=== PATIENT | male | born 1950 | race Caucasian/White ===

== ENCOUNTER → 2020-02-28 07:02 | Outpatient (CLI) | payer MEDICARE, OTHER, SELFPAY ==
[2020-02-28 08:30] LABS: Add Manual Diff / Slide Review NO; Basophils Absolute Auto 100 /uL (0-100); Basophils Percent Auto 1.3 % (0-2); Eosinophils Absolute Auto 200 /uL (0-450); Eosinophils Percent Auto 2.3 % (2-4); Hematocrit 46.9 % (41-53); Hemoglobin 15.7 g/dL (13.5-17.5); Lymphocytes Absolute Auto 2200 /uL (1100-4500); Lymphocytes Percent Auto 30.5 % (25-40); Mean Corpuscular HGB Conc 33.5 % (30-36); Mean Corpuscular Hemoglobin 29.3 PG (26-34); Mean Corpuscular Volume 87.6 fL (80-100); Monocytes Absolute Auto 700 /uL (0-900); Monocytes Percent Auto 10.2 % (3-14); Neutrophils Absolute Auto 4000 /uL (1500-7000); Neutrophils Percent Auto 55.7 % (50-75); Platelet Count 151 X10^3/uL (150-400); Red Blood Cell Count 5.35 X10^6/uL (4.5-5.9); Red Cell Distribution Width 13.5 % (11.6-14.8); White Blood Cell Count 7.2 X10^3/uL (4.5-11.0)
[2020-02-28 09:06] LABS: Alanine Aminotransferase 20 IU/L (<50); Albumin 4.3 g/dL (3.5-5.0); Albumin Globulin Ratio 1.4 (1.0-2.8); Alkaline Phosphatase 47 U/L (38-126); Aspartate Aminotransferase 24 IU/L (17-59); BUN Creatinine Ratio 17.5 (6-22); Bilirubin Total 0.8 mg/dL (0.2-1.3); Blood Urea Nitrogen 18 mg/dL (9-20); Calcium 9.9 mg/dL (8.4-10.2); Carbon Dioxide 29 mmol/L (22-32); Chloride 104 mmol/L (98-107); Cholesterol 159 mg/dL (140-199); Estimated Glomerular Filt Rate > 60.0 mL/min (>60); Glucose 121 mg/dL (80-110); HDL Cholesterol 41 mg/dL (40-60); HEMOLYSIS < 15 (0-50); LDL Cholesterol Calculated 97 mg/dL (<100); Potassium 3.9 mmol/L (3.4-5.1); Sodium 139 mmol/L (137-145); Total Protein 7.3 g/dL (6.3-8.2); Triglycerides 105 mg/dL (35-150)
== END ==
PROVIDERS: Referring Provider Physician Assistant; Visit Provider Physician Assistant
DX: I48.91 Unspecified atrial fibrillation (principal); E78.5 Hyperlipidemia, unspecified; I10 Essential (primary) hypertension
CPT/HCPCS: 36415; 80053; 80061; 85025

== ENCOUNTER → 2020-07-19 07:55 | Outpatient (CLI) | payer MEDICARE, OTHER, SELFPAY ==
--- NOTE | 2020-07-19 | DI.ECHO.S_ITS ---
[facility]---------+ [facility] +---------+ : : [address] : [address] [place] : : : : [id number] : : : : Phone: [phone]---------+ Echocardiogram Report + + :Name: TANESHA ADAME Study Date: 07/19/2020 Height: 74 in : :[facility] Weight: 232 lb : : Gender: Male BSA: 2.3 m2 : :: 1950 Age: 69 yrs BP: 140/91 mmHg: :Reason For Study: ATRIAL FIBRILLATION : :Ordering Physician: STEPH, : :KELSIE Performed By: Belkis Morse : :Referring: KELSIE STACY : + + Interpretation Summary 1) Normal left ventricular size and thickness with low normal systolic function (EF 50-55%). 2) Normal right ventricular size and function. 3) The left atrium is moderately dilated. 3) Mild aortic stenosis present (valve area 1.6cm2, mean gradient 8.4mmHg, severity ratio 0.54). 4) No prior Echo available for comparison. Procedure: A two-dimensional transthoracic echocardiogram with color flow and Doppler was performed. The study quality was technically adequate. There is no prior echocardiogram noted for this patient. The patient was in atrial fibrillation with heart rates between 64-82 bpm during the exam. Left Ventricle: The left ventricle is normal in size and wall thickness. The ejection fraction is estimated to be 50-55%. Left ventricular systolic function is low normal. There are no focal wall motion abnormalities. Diastolic function could not be accurately assessed due to atrial fibrillation. Right Ventricle: The right ventricle is normal in size and function. Atria: The left atrium is moderately dilated. Right atrial size is normal. There is no Doppler evidence for an interatrial shunt. Mitral Valve: The mitral valve is normal in structure and function. There is mild mitral regurgitation. Aortic Valve: There is mild aortic valve sclerosis. The aortic valve is trileaflet. The aortic valve is mildly calcified. There is mild aortic stenosis. There is trace aortic regurgitation. Tricuspid Valve: The tricuspid valve is normal in structure and function. The right ventricular systolic pressure is estimated to be at least 30 mmHg based on an estimated right atrial pressure of 8 mm Hg. There is mild tricuspid regurgitation. Pulmonic Valve: The pulmonic valve leaflets are thin and pliable; valve motion is normal. There is no pulmonic valvular regurgitation. Great Vessels: The aortic root is normal size. The dimensions of the ascending aorta are normal. The IVC is of normal diameter and collapses less than 50% with a sniff. This suggests a right atrial pressure of 8 mm Hg. Pericardium/ Pleura There is no pericardial effusion. There is no pleural effusion. MMode/2D Measurements & Calculations LVIDd: 4.5 cm LVOT diam: 2.0 cm LVIDs: 2.8 cm Ao root diam: 2.9 cm FS: 38.5 % asc Aorta Diam: 3.1 cm EPSS: 0.95 cm Ao Arch Diam (Prox Trans): 3.1 cm IVSd: 0.87 cm LVPWd: 0.92 cm LV mejia. diameter/BSA (cm/m^2): 1.9 LV sys. diameter/BSA (cm/m^2): 1.2 LA A2 area: 28.8 cm2 RA long axis: 6.2 cm LA A4 area: 27.7 cm2 RA area: 20.2 cm2 LA length (vol): 6.3 cm RA vol: 56.4 ml LA vol: 107.1 ml RA : 24.4 ml/m2 LA vol index: 46.3 ml/m2 IVC diam: 1.2 cm RVD1 (basal): 4.0 cm TAPSE: 2.4 cm Doppler Measurements & Calculations Ao V2 max: 194.5 cm/sec LVOT Max Vinay: 100.0 cm/sec Ao V2 mean: 136.7 cm/sec LV V1 max P.0 mmHg Ao max P.2 mmHg LV V1 VTI: 22.3 cm Ao mean P.4 mmHg JOSELUIS(I,D): 1.6 cm2 Ao V2 VTI: 41.3 cm JOSELUIS(V,D): 1.6 cm2 sev ratio: 0.54 JOSELUIS indexed to BSA (cm^2/m^2): 0.71 MV E max vinay: 98.0 cm/sec TR max vinay: 235.6 cm/sec MV A max vinay: 2.1 cm/sec TR max P.2 mmHg MV E/A: 47.1 PA V2 max: 71.6 cm/sec Med Peak E' Vinay: 13.1 cm/sec PA V2 mean: 49.3 cm/sec E/E' med: 7.5 PA mean P.1 mmHg Lat Peak E' Vinay: 14.6 cm/sec PA pr(Accel): 1.9 mmHg E/E' lat: 6.7 E/e' average: 7.1 MV dec time: 0.21 sec SV(LVOT): 67.9 ml Reading Physician:01:01 PM
== END ==
PROVIDERS: PCP Physician Assistant; Referring Provider Internal Medicine Cardiovascular Disease; Visit Provider Internal Medicine Cardiovascular Disease
DX: I08.3 Combined rheumatic disorders of mitral, aortic and tricuspid valves (principal); I48.11 Longstanding persistent atrial fibrillation
CPT/HCPCS: 93306

== ENCOUNTER → 2020-10-10 14:00 | Outpatient (CLI) | payer MEDICARE, OTHER, SELFPAY ==
[2020-10-10] MEDS: COVID-19 VACC, Ad26(JANSSEN)/PF 0.5 ML IM (14:06)
== END ==
PROVIDERS: PCP Physician Assistant; Visit Provider Internal Medicine
DX: Z23 Encounter for immunization (principal)
CPT/HCPCS: 0031A; 91303